=== PATIENT | female | born 1975 | race Caucasian/White ===

== ENCOUNTER → 2017-10-23 08:05 | Outpatient (CLI) | payer MEDICAID, SELFPAY ==
--- NOTE | 2017-10-23 08:10 | BI_ITS ---
MAMMOGRAPHY - BILATERAL SCREENING REASON FOR EXAM: Female, 42 years old. Routine annual screening examination. PERTINENT HISTORY: Non-contributory. TECHNIQUE: Digital bilateral breast etcor (3D mammographic acquisition) in the CC and MLO projections. 2-D mediolateral oblique (MLO) and craniocaudad (CC) views of both breasts were obtained. CAD: Full Field Digital Mammography with Computer Added Detection was performed. COMPARISON: None. Baseline examination. FINDINGS: Breast Composition: The breasts are heterogeneously dense, which may obscure small masses. There are no dominant masses or suspicious calcifications. Benign appearing bilateral axillary lymph nodes. No other significant abnormalities are identified. BI/SCREENING MAMM (CAD), BILAT IMPRESSION: Negative screening mammogram. Yearly followup mammogram recommended. (A) ASSESSMENT CATEGORY: BIRADS Category 2: Benign. A letter regarding these results will be sent to the patient by the facility within 30 days. Approximately 10% of breast cancers are not detected by mammography. A normal mammogram should not delay biopsy of a clinically suspicious abnormality. [id number] Electronically Signed: Sudhakar Zazueta MD at 15:14 EDT Tel [phone], Service support ,
== END ==
PROVIDERS: Visit Provider Obstetrics & Gynecology
DX: Z12.31 Encounter for screening mammogram for malignant neoplasm of breast (principal)
CPT/HCPCS: 77063; 77067

== ENCOUNTER → 2018-07-21 15:23 | Outpatient (CLI) | payer MEDICAID, SELFPAY ==
[2016-11-20 10:33] VITALS: BMI 41.2
== END ==
PROVIDERS: Referring Provider Otolaryngology; Visit Provider Otolaryngology
DX: J01.90 Acute sinusitis, unspecified (principal)
CPT/HCPCS: 87070; 87205

== ENCOUNTER → 2018-11-20 07:52 | Outpatient (CLI) | payer MEDICAID, SELFPAY ==
--- NOTE | 2018-11-20 07:54 | BI_ITS ---
MAMMOGRAPHY - BILATERAL SCREENING REASON FOR EXAM: Female, 43 years old. Routine annual screening examination. PERTINENT HISTORY: Non-contributory. TECHNIQUE: Digital bilateral breast alfie (3D mammographic acquisition) in the CC and MLO projections. 2-D mediolateral oblique (MLO) and craniocaudad (CC) views of both breasts were obtained. CAD: Full Field Digital Mammography with Computer Added Detection was performed. COMPARISON: Comparison is made with prior study dated October 23, 2017. FINDINGS: Breast Composition: The breasts are heterogeneously dense, which may obscure small masses. There are no dominant masses or suspicious calcifications. Stable appearance of the small bilateral axillary lymph nodes. No other significant abnormalities are identified. There has been no significant change since the prior study. BI/SCREEN MAMM (CAD) W/ALFIE BILAT IMPRESSION: Stable bilateral screening mammogram. Yearly follow-up mammogram recommended. (A) ASSESSMENT CATEGORY: BIRADS Category 2: Benign. A letter regarding these results will be sent to the patient by the facility within 30 days. Approximately 10% of breast cancers are not detected by mammography. A normal mammogram should not delay biopsy of a clinically suspicious abnormality. [id number] Electronically Signed: Sudhakar Zazueta, at 8:17 EDT , Service support ,
== END ==
PROVIDERS: Family Provider Preventive Medicine Occupational Medicine; PCP Preventive Medicine Occupational Medicine; Referring Provider Obstetrics & Gynecology; Visit Provider Obstetrics & Gynecology
DX: Z12.31 Encounter for screening mammogram for malignant neoplasm of breast (principal)
CPT/HCPCS: 77063; 77067

== ENCOUNTER 2018-12-07 08:30 | Outpatient (RCR) | payer MEDICAID, SELFPAY | END 2018-12-08 23:59 | LOC: NS 08:30 | PROVIDERS: Family Provider Preventive Medicine Occupational Medicine; PCP Preventive Medicine Occupational Medicine; Visit Provider Obstetrics & Gynecology | DX: E66.01 Morbid (severe) obesity due to excess calories (principal); Z68.41 Body mass index [BMI] 40.0-44.9, adult; Z71.3 Dietary counseling and surveillance | CPT/HCPCS: 97802; 97803 ==

== ENCOUNTER 2018-12-21 08:28 | Outpatient (RCR) | payer MEDICAID, SELFPAY ==
[2016-11-20 10:33] VITALS: BMI 41.2
== END 2019-01-08 23:59 ==
LOC: NS 08:28
PROVIDERS: Family Provider Preventive Medicine Occupational Medicine; PCP Preventive Medicine Occupational Medicine; Visit Provider Obstetrics & Gynecology
DX: E66.01 Morbid (severe) obesity due to excess calories (principal); Z68.41 Body mass index [BMI] 40.0-44.9, adult; Z71.3 Dietary counseling and surveillance
CPT/HCPCS: 97803

== ENCOUNTER 2019-02-07 09:00 | Outpatient (RCR) | payer MEDICAID, SELFPAY ==
[2016-11-20 10:33] VITALS: BMI 41.2
== END 2019-02-07 23:59 ==
LOC: NS 09:00
PROVIDERS: Family Provider Preventive Medicine Occupational Medicine; PCP Preventive Medicine Occupational Medicine; Visit Provider Obstetrics & Gynecology
DX: E66.01 Morbid (severe) obesity due to excess calories (principal); Z68.41 Body mass index [BMI] 40.0-44.9, adult; Z71.3 Dietary counseling and surveillance
CPT/HCPCS: 97803

== ENCOUNTER 2019-02-21 08:55 | Outpatient (RCR) | payer MEDICAID, SELFPAY ==
[2016-11-20 10:33] VITALS: BMI 41.2
== END 2019-03-10 23:59 ==
LOC: NS 08:55
PROVIDERS: Family Provider Preventive Medicine Occupational Medicine; PCP Preventive Medicine Occupational Medicine; Visit Provider Obstetrics & Gynecology
DX: E66.01 Morbid (severe) obesity due to excess calories (principal); Z68.41 Body mass index [BMI] 40.0-44.9, adult; Z71.3 Dietary counseling and surveillance
CPT/HCPCS: 97803

== ENCOUNTER → 2019-02-26 08:58 | Outpatient (CLI) | payer MEDICAID, SELFPAY ==
[2016-11-20 10:33] VITALS: BMI 41.2
[2019-02-26 10:56] LABS: Hematocrit 41.4 % (37-47); Hemoglobin 13.5 g/dL (12.0-15.0); Mean Corp Hgb Conc 32.6 g/dL (32-36); Mean Platelet Vol. 12.1 fl (6.2-12.0); Platelet Count 235 K/mm3 (150-450); RBC Distribution Width CV 12.8 % (11.6-14.6); RBC Distribution Width SD 44.6 fl (35.1-43.9); Red Blood Count 4.36 M/mm3 (4.2-5.4)
[2019-02-26 11:29] LABS: Cholesterol 165 mg/dL (200); Glucose 92 mg/dL (74-106); High Density Lipoprotein 45 mg/dL; Triglycerides 67 mg/dL; Very Low Density Lipoprotein 13 mg/dL (5-40)
[2019-02-28 09:51] LABS: Insulin 8.1 mU/L (2.6-37.6)
== END ==
PROVIDERS: Family Provider Preventive Medicine Occupational Medicine; PCP Preventive Medicine Occupational Medicine; Referring Provider Obstetrics & Gynecology; Visit Provider Obstetrics & Gynecology
DX: E66.1 Drug-induced obesity (principal); R63.5 Abnormal weight gain
CPT/HCPCS: 36415; 80061; 82947; 83525; 85027

== ENCOUNTER 2019-04-04 09:30 | Outpatient (RCR) | payer MEDICAID, SELFPAY ==
[2016-11-20 10:33] VITALS: BMI 41.2
== END 2019-04-04 23:59 | disposition home or self-care (01) ==
LOC: NS 09:30
PROVIDERS: Family Provider Preventive Medicine Occupational Medicine; PCP Preventive Medicine Occupational Medicine; Visit Provider Obstetrics & Gynecology
DX: Z71.3 Dietary counseling and surveillance (principal); E66.01 Morbid (severe) obesity due to excess calories; Z68.41 Body mass index [BMI] 40.0-44.9, adult
CPT/HCPCS: 97803

== ENCOUNTER → 2020-03-30 12:22 | Outpatient (CLI) | payer BC, MEDICAID, SELFPAY ==
[2020-03-30 10:05] VITALS: BMI 42.5
== END ==
PROVIDERS: PCP Preventive Medicine Occupational Medicine; Referring Provider Physician Assistant; Visit Provider Physician Assistant
DX: R53.83 Other fatigue (principal); R51.9 Headache, unspecified; R11.0 Nausea; M79.10 Myalgia, unspecified site
CPT/HCPCS: 87635; U0003

== ENCOUNTER → 2020-05-23 15:55 | Outpatient (CLI) | payer OTHER, MEDICAID, SELFPAY ==
[2020-03-30 10:05] VITALS: BMI 42.5
--- NOTE | 2020-05-23 15:58 | BI_ITS ---
MAMMOGRAPHY - BILATERAL SCREENING REASON FOR EXAM: Female, 44 years old. Routine annual screening examination. PERTINENT HISTORY: Non-contributory. TECHNIQUE: Digital bilateral breast alfie (3D mammographic acquisition) in the CC and MLO projections. 2-D mediolateral oblique (MLO) and craniocaudad (CC) views of both breasts were obtained. CAD: Full Field Digital Mammography with Computer Added Detection was performed. COMPARISON: Comparison is made with prior examination dated 11/20/2018 and 10/23/2017. FINDINGS: Breast Composition: The breasts are heterogeneously dense, which may obscure small masses. There are no dominant masses or suspicious calcifications. Stable small benign-appearing bilateral axillary lymph nodes. No other significant abnormalities are identified. There has been no significant change since the prior study. BI/SCRN MAMM (CAD)W/ALFIE BILAT IMPRESSION: Stable bilateral screening mammogram. Yearly follow-up mammogram recommended. (A) ASSESSMENT CATEGORY: BIRADS Category 2: Benign. A letter regarding these results will be sent to the patient by the facility within 30 days. Approximately 10% of breast cancers are not detected by mammography. A normal mammogram should not delay biopsy of a clinically suspicious abnormality. [id number] Electronically Signed: Sudhakar Zazueta, at 8:47 EST , Service support ,
== END ==
PROVIDERS: PCP Preventive Medicine Occupational Medicine; Referring Provider Preventive Medicine Occupational Medicine; Visit Provider Preventive Medicine Occupational Medicine
DX: Z12.31 Encounter for screening mammogram for malignant neoplasm of breast (principal)
CPT/HCPCS: 77063; 77067

== ENCOUNTER → 2020-10-23 17:42 | Outpatient (CLI) | payer OTHER, MEDICAID, SELFPAY ==
[2020-03-30 10:05] VITALS: BMI 42.5
--- NOTE | 2020-10-23 17:46 | MRI_ITS ---
STUDY: MRI RIGHT ANKLE WITHOUT CONTRAST REASON FOR EXAM: Right lateral ankle pain status post right ankle injury 2 weeks ago, evaluate for ligament tear, peroneal tendon tear. TECHNIQUE: Standardized fat and water weighted pulse sequences were obtained in all 3 orthogonal planes. COMPARISON: None. FINDINGS: There is mild edema in the lateral and medial subcutis adipose space. Normal posterior tibialis tendon. Normal flexor digitorum longus tendon. Normal flexor hallucis longus tendon. Normal peroneus longus and brevis tendons. Normal tibialis anterior tendon. Normal extensor hallucis longus tendon. Normal extensor digitorum longus tendons. Normal Achilles tendon. There is a posterior calcaneal enthesophyte. Normal plantar fascia. There is a plantar calcaneal enthesophyte. Normal intrinsic muscles of the rearfoot. Normal distal tibiofibular syndesmotic ligamentous complex. There is a sprain of the anterior talofibular ligament (inversion recovery series 10 image 14) without ligament rupture. Normal calcaneofibular and posterior talofibular ligaments. Normal subtalar ligaments and sinus tarsi. Normal deltoid ligamentous complexes. Normal plantar calcaneonavicular (spring) ligament. There is a small tibiotalar joint effusion (inversion recovery sagittal images 15, 16). Normal talar dome. Normal subtalar articulations. Normal talonavicular articulation. Normal calcaneocuboid articulation. Normal navicular-cuneiform articulations. MRI/Lower Ext Joint Only (Routine) IMPRESSION: Anterior talofibular ligament sprain. Small tibiotalar joint effusion. No demonstrated peroneal tendon tear. Electronically Signed: Santi Smith MD at 9:45 EDT Tel , Service support ,
== END ==
PROVIDERS: PCP Preventive Medicine Occupational Medicine; Visit Provider Podiatrist
DX: M25.373 Other instability, unspecified ankle (principal); S96.819A Strain of other specified muscles and tendons at ankle and foot level, unspecified foot, initial encounter; S93.409A Sprain of unspecified ligament of unspecified ankle, initial encounter
CPT/HCPCS: 73721

== ENCOUNTER → 2020-10-28 | Outpatient (CLI) | payer OTHER, MEDICAID, SELFPAY ==
[2020-10-28 15:15] LABS: Mucous, Urine 0 SEEN /hpf (<or=2+); Red Blood Cells-Urine 0 SEEN /hpf (0-5)
[2020-10-28 15:18] LABS: Color, Urine Yellow (Yellow); Glucose, Dipstick Normal (Normal); Ketone-Dipstick Negative (Negative); Leukocyte Esterase-Dipstick 25 /ul (Negative); Nitrite-Dipstick Negative (Negative); Occult Blood-Urine Negative /ul (Negative); Protein-Dipstick Negative (Negative); Urine Bilirubin Dipstick Negative (Negative); Urine Clarity Clear (Clear); Urine Urobilinogen Normal (Normal)
[2020-10-28 15:28] LABS: Bacteria RARE /hpf (None Seen); Squamous Epithelial Cells - UA 0-5 SEEN /hpf (5-10); White Blood Cells 0-5 SEEN /hpf (0-5)
== END | disposition home or self-care (01) ==
PROVIDERS: PCP Preventive Medicine Occupational Medicine; Visit Provider Physician Assistant
DX: R35.0 Frequency of micturition (principal); R30.0 Dysuria
CPT/HCPCS: 81001; 87086; 87088

== ENCOUNTER 2020-11-21 16:00 | Outpatient (RCR) | payer OTHER, MEDICAID, SELFPAY ==
--- NOTE | 2020-11-21 16:51 | HP.PTEVAL ---
Patient's Visit Information SEVEN SAENZ is a 45 year old F referred to Physical Therapy by Dr. Raleigh Gutierres DPM with a diagnosis of R lateral ankle sprain/instability. Date of Evaluation: 11/21/20 Physical Therapist: BOBBY Murguia - Visit Plan Frequency: 2x /Week Duration: 4 Weeks Plan: 2X/ week for 4 weeks for R ankle stretching, strengthening, balance and proprioception with HEP and US/TENS per script if needed - Subjective Pt sprained her R ankle the first part of October.... she missed the step in her garage. She has sprained that ankle several time including past Jan. This time she went to the Dr. and did not go before. He did an MRI and showed an sprain and pulled muscle. She was in a CAM boot so she has been just using the brace.... she uses it at work all the time or when she is on her feet. She is at [employer] and on her feet for 9 hours a day. Her R ankle is swollen by the end of the day. Sometimes propping the ankle helps the swelling and other times she ices. She is not on any meds at this point. She does not have a latex allergy. She reports that she is ok with walking on smooth surfaces she is fine but walking on stairs, rocks, or uneven ground that she is unstable. Squating and twisting her ankle swelled right away and she had to stop. She feels that is better from the day that happened but her ankle is not right. It is hard to get moving after sitting in one position for awhile and it has been this way a few years ago. - Pain R ankle pain Pain Intensity (Out of 10): 0 Pain Intensity Range: 3 - Objective Gait: walks with decrease stance time on the R. R Lat to med mal 26.4, Figure 8 52, 22.2. L 27.3, 52 22.3. R ankle AROM: DF 0 degrees, PF 53, INV 26, EV 17. L ankle AROM: DF 5, PF 70, INV 39, EV 12. R ankle MMT: DF 4-/5, NH 4-/5 with increase pain, EV 4-/5 and INV 4-/5. R SLB 9 seconds. L SLB 15 seconds. Tight R gastroc - Goals Goal 1:: I HEP Goal Time Frame: 4-6 Weeks Goal 2:: Increase R ankle strength by 1/2 muscle grade (at time of the eval: R ankle MMT: DF 4-/5, PF 4-/5 with increase pain, EV 4-/5 and INV 4-/5 Goal Time Frame: 4-6 Weeks Goal 3:: Be able to SLB X 30 seconds with no LOB and increase stability Goal Time Frame: 4-6 Weeks Goal 4:: Be able to walk without an antalgic gait pattern Goal Time Frame: 4-6 Weeks Goal 5:: Be able to complete a work day without having pain and swelling in her R ankle Goal Time Frame: 4-6 Weeks - Rehabilitation Potential Rehabilitation Potential: Good - Anticipated Interventions Patient/Client Instruction: Educate patient on: Condition, Plan of Care For the Purpose of:: To decrease swelling/inflammation, To increase ROM, To improve nutrient delivery to tissue, To improve muscle performance and motor function, To improve ability to perform ADL's, To increase tolerance to activity/condition/position, To improve performance and independence with ADL's, To improve ability of physical actions for home/community/work/leisure, To improve gait and locomotor functions, To improve health of tissue, To decrease soft tissue restriction, To increase flexibility/ROM, To improve balance, To improve safety with gait Therapeutic Exercise to Include: Strength training, Endurance training, Balance training, Flexibilty training, Gait and locomotor training, Neuromotor development, Passive ROM, Active ROM For the Purpose of:: To decrease swelling/inflammation, To increase ROM, To improve nutrient delivery to tissue, To improve muscle performance and motor function, To improve ability to perform ADL's, To increase tolerance to activity/condition/position, To improve performance and independence with ADL's, To decrease level of supervision to perform tasks, To improve ability of physical actions for home/community/work/leisure, To improve gait and locomotor functions, To improve health of tissue, To decrease soft tissue restriction, To increase flexibility/ROM, To improve balance, To improve safety with gait Manual Therapy Techniques to Include: Mobilization, Passive ROM, Soft tissue mobilization For the Purpose of:: To increase ROM, To improve nutrient delivery to tissue TENS: Yes Ultrasound (thermal/non thermal): Yes For the Purpose of:: To decrease swelling/inflammation, To improve nutrient delivery to tissue Thank you for the opportunity to evaluate your patient. For Medicare and Medicare HMO plans, please review the plan of care and approve it. It will need to be FAXED BACK to us at [phone] for Medicare purposes. For Medicare only, by signing this I certify the plan of care. Please let me know if there are questions or concerns regarding this plan of care. Physician Signature: Date:
--- NOTE | 2021-04-09 13:10 | HP.PTEVAL ---
Patient's Visit Information SEVEN SAENZ is a 45 year old F referred to Physical Therapy by Dr. Raleigh Gutierres DPM with a diagnosis of R lateral ankle sprain/instability. Date of Evaluation: 11/21/20 Physical Therapist: BOBBY Murguia - Visit Plan Frequency: 2x /Week Duration: 4 Weeks Plan: 2X/ week for 4 weeks for R ankle stretching, strengthening, balance and proprioception with HEP and US/TENS per script if needed - Subjective Pt sprained her R ankle the first part of October.... she missed the step in her garage. She has sprained that ankle several time including past Jan. This time she went to the Dr. and did not go before. He did an MRI and showed an sprain and pulled muscle. She was in a CAM boot so she has been just using the brace.... she uses it at work all the time or when she is on her feet. She is at [employer] and on her feet for 9 hours a day. Her R ankle is swollen by the end of the day. Sometimes propping the ankle helps the swelling and other times she ices. She is not on any meds at this point. She does not have a latex allergy. She reports that she is ok with walking on smooth surfaces she is fine but walking on stairs, rocks, or uneven ground that she is unstable. Squating and twisting her ankle swelled right away and she had to stop. She feels that is better from the day that happened but her ankle is not right. It is hard to get moving after sitting in one position for awhile and it has been this way a few years ago. - Pain R ankle pain Pain Intensity (Out of 10): 0 Pain Intensity Range: 3 - Objective Gait: walks with decrease stance time on the R. R Lat to med mal 26.4, Figure 8 52, 22.2. L 27.3, 52 22.3. R ankle AROM: DF 0 degrees, PF 53, INV 26, EV 17. L ankle AROM: DF 5, PF 70, INV 39, EV 12. R ankle MMT: DF 4-/5, ME 4-/5 with increase pain, EV 4-/5 and INV 4-/5. R SLB 9 seconds. L SLB 15 seconds. Tight R gastroc - Balance/Special Test Scores Lower Extremity Functional Score: 58 - Goals Goal 1:: I HEP Goal Time Frame: 4-6 Weeks Goal 2:: Increase R ankle strength by 1/2 muscle grade (at time of the eval: R ankle MMT: DF 4-/5, PF 4-/5 with increase pain, EV 4-/5 and INV 4-/5 Goal Time Frame: 4-6 Weeks Goal 3:: Be able to SLB X 30 seconds with no LOB and increase stability Goal Time Frame: 4-6 Weeks Goal 4:: Be able to walk without an antalgic gait pattern Goal Time Frame: 4-6 Weeks Goal 5:: Be able to complete a work day without having pain and swelling in her R ankle Goal Time Frame: 4-6 Weeks - Rehabilitation Potential Rehabilitation Potential: Good - Anticipated Interventions Patient/Client Instruction: Educate patient on: Condition, Plan of Care For the Purpose of:: To decrease swelling/inflammation, To increase ROM, To improve nutrient delivery to tissue, To improve muscle performance and motor function, To improve ability to perform ADL's, To increase tolerance to activity/condition/position, To improve performance and independence with ADL's, To improve ability of physical actions for home/community/work/leisure, To improve gait and locomotor functions, To improve health of tissue, To decrease soft tissue restriction, To increase flexibility/ROM, To improve balance, To improve safety with gait Therapeutic Exercise to Include: Strength training, Endurance training, Balance training, Flexibilty training, Gait and locomotor training, Neuromotor development, Passive ROM, Active ROM For the Purpose of:: To decrease swelling/inflammation, To increase ROM, To improve nutrient delivery to tissue, To improve muscle performance and motor function, To improve ability to perform ADL's, To increase tolerance to activity/condition/position, To improve performance and independence with ADL's, To decrease level of supervision to perform tasks, To improve ability of physical actions for home/community/work/leisure, To improve gait and locomotor functions, To improve health of tissue, To decrease soft tissue restriction, To increase flexibility/ROM, To improve balance, To improve safety with gait Manual Therapy Techniques to Include: Mobilization, Passive ROM, Soft tissue mobilization For the Purpose of:: To increase ROM, To improve nutrient delivery to tissue TENS: Yes Ultrasound (thermal/non thermal): Yes For the Purpose of:: To decrease swelling/inflammation, To improve nutrient delivery to tissue Thank you for the opportunity to evaluate your patient. For Medicare and Medicare HMO plans, please review the plan of care and approve it. It will need to be FAXED BACK to us at [phone] for Medicare purposes. For Medicare only, by signing this I certify the plan of care. Please let me know if there are questions or concerns regarding this plan of care. Physician Signature: Date:
== END 2020-11-21 19:00 | disposition home or self-care (01) ==
LOC: PT 16:00
PROVIDERS: PCP Preventive Medicine Occupational Medicine; Referring Provider Podiatrist; Visit Provider Podiatrist
DX: S93.491D Sprain of other ligament of right ankle, subsequent encounter (principal); X58.XXXD Exposure to other specified factors, subsequent encounter
CPT/HCPCS: 97161

== ENCOUNTER 2022-03-27 12:30 | Outpatient (RCR) | payer BC, MEDICAID, SELFPAY ==
--- NOTE | 2022-02-26 11:53 | HP.PTEVAL ---
Patient's Visit Information SEVEN SAENZ is a 46 year old F referred to Physical Therapy by Dr. Marcos Groves DPM with a diagnosis of Achilled Tendonitis. Date of Evaluation: 02/26/22 Physical Therapist: Nayeli Gutierrez DPT - Visit Plan Frequency: 2x /Week Duration: 4 Weeks Plan: Modality of US- manual and eccentrics- stretching. HEP Given IE: gastroc and soleus stretching with towel - Subjective Patient reports that her left foot is bothering her about a year ago- she reports that she has heel spurs- and its hard to go up on her toes. It always hurts right on the back of the heel but sometimes it moves to the medial and lateral heel. It will get so red and inflammed in the back- she has tried ice, voltaren- the only thing that helped was massage in the calf. That helped for a couple of days and returned to normal. Started last year when she had a boot on her right leg. Goes down stairs she goes sideways but can do recip down but just has to go slow. Hard to get up and move after sitting. She is wearing a night splint but she can only wear it for about 20 min then it starts to throb and radiated all the way up the back of her leg. She is taking Meloxicam that has helped some but the pain is still there. Worst: 5-6/10 Agg: stairs, getting up after sitting, walking- many times its after she does the activitites. She does not try to run or jump due to pain. Eases: massage Best: 0/10. Describes the pain as both sharp/shooting but its also dull achy and throbbing- burning. No N/T in the toes. No back or hip pains. No issues- prior to this- sprained her right ankle. She does not wear orthotics or inserts in her shoes. She feels that she needs a soft back to her shoe. She trys to be active- no specific exercise routine. Work: [employer]- stands/walks for most of her day. Sleep: not disturbed but when she first lays down the ankle pulsates. Did have an x-ray but no MRI. Had cortizone injections in May- one helped the other didn't. She does have tearing sensations. PMHx:none Meds: meloxicam- Deloxitine, Allergy medication. - Objective Posture: FH, RS- can correct with verbal cues but does not maintain- overweight. Gait: slightly antalgic- decreased stance on left LE with poor heel/toe pattern. Girth: Figure 8: 55 cm Malls:28.5 cm Mets: 22 cm. SLS: 5 sec with increased muscle activation, sway and pain. HR/TR: able with pain. ROM: all WFL with the limitation in DF: 10 degrees. Strength: 5/5 throughout. Flex: HS: severe, Gastroc: severe, Soleus: severe - Goals Goal 1:: Patient will be I with HEP and progression Goal Time Frame: 4-6 Weeks Goal 2:: Patient will ambulate >300 feet with a normalized gait pattern Goal Time Frame: 4-6 Weeks Goal 3:: Patient will asc/desc 8 stairs recip with no HR Goal Time Frame: 4-6 Weeks Goal 4:: Patient will report 80% improvement Goal Time Frame: 4-6 Weeks Goal 5:: Patient will SLS for 30 sec without LOB or pain Goal Time Frame: 4-6 Weeks - Rehabilitation Potential Physical Therapy Diagnosis: Patient presents with hypomobility- she has decreased painfree ROM, LE strength, flex and muscular endurance leading to abnormal gait and increased pain with ADL's. Rehabilitation Potential: Fair - Anticipated Interventions Patient/Client Instruction: Educate patient on: Benefits of Fitness Program Therapeutic Exercise to Include: Strength training, Endurance training, Balance training, Coordination, Agility training, Body mechanics, Postural training, Flexibilty training, Gait and locomotor training, Neuromotor development, Passive ROM, Active ROM, Dynamic Lumbar Stabilization, Scapular Strength/Stabilization For the Purpose of:: To improve ability to perform ADL's Manual Therapy Techniques to Include: Functional dry needling, Soft tissue mobilization TENS: Yes Cryotherapy (ice pack, ice massage): Yes Thermo therapy (hot pack): Yes Ultrasound (thermal/non thermal): Yes Thank you for the opportunity to evaluate your patient. For Medicare and Medicare HMO plans, please review the plan of care and approve it. It will need to be FAXED BACK to us at [phone] for Medicare purposes. For Medicare only, by signing this I certify the plan of care. Please let me know if there are questions or concerns regarding this plan of care. Physician Signature: Date:
--- NOTE | 2022-03-27 12:42 | HP.PT.NRP ---
SEVEN SAENZ was seen in my office for initial evaluation on 02/26/22. The following Plan of Care was established for this patient: Initial Frequency: 2x /Week Initial Duration: 4 Weeks Patient/Client Instruction: Educate patient on: Benefits of Fitness Program Therapeutic Exercise to Include: Strength training, Endurance training, Balance training, Coordination, Agility training, Body mechanics, Postural training, Flexibilty training, Gait and locomotor training, Neuromotor development, Passive ROM, Active ROM, Dynamic Lumbar Stabilization, Scapular Strength/Stabilization For the Purpose of:: To improve ability to perform ADL's Manual Therapy Techniques to Include: Functional dry needling, Soft tissue mobilization TENS: Yes Cryotherapy (ice pack, ice massage): Yes Thermo therapy (hot pack): Yes Ultrasound (thermal/non thermal): Yes This patient was last seen in our office . Pertinent comments regarding their Physical therapy will appear below: At this point I will be discontinuing this patient from physical therapy. I would be happy to see this patient again in the future if found appropriate by the physician. Thank you! Nayeli Gutierrez DPT Balance/Gait/Functional tests - Balance/Special Test Scores Lower Extremity Functional Score: 68
== END 2022-03-27 12:52 | disposition home or self-care (01) ==
LOC: PT 12:30
PROVIDERS: PCP Preventive Medicine Occupational Medicine; Referring Provider Podiatrist; Visit Provider Podiatrist
DX: M76.62 Achilles tendinitis, left leg (principal)
CPT/HCPCS: 97035; 97110; 97140; 97162; 97164

== ENCOUNTER → 2023-01-07 | Outpatient (CLI) | payer BC, SELFPAY ==
--- NOTE | 2023-01-07 06:44 | MRI_ITS ---
STUDY: MRI LEFT ANKLE WITHOUT CONTRAST REASON FOR EXAM: Female, 47 years old. ACHILLES TENDINITIS, LT ANKLE POSTERIOR PAIN TECHNIQUE: Standardized fat and water weighted pulse sequences were obtained in all 3 orthogonal planes. COMPARISON: None. FINDINGS: The Achilles tendon is moderately thickened in the middle one third region down to its insertion site on the calcaneus, with mild intrasubstance degeneration and signal but no tears or retraction. The remaining aspects of the Achilles tendon are normal. A small amount of pre-Achilles bursal fluid is present. The central cord of the plantar fascia at the calcaneal insertion site is also mildly thickened with increased signal. Normal remaining aspects of the plantar fascia. No marrow edema or fracture or osteochondral defect is present. Normal subcutis adipose space. Normal posterior tibialis tendon. Normal flexor digitorum longus tendon. Normal flexor hallucis longus tendon. Normal peroneus longus and brevis tendons. Normal tibialis anterior tendon. Normal extensor hallucis longus tendon. Normal extensor digitorum longus tendons. Normal plantar calcaneal tubercles. Normal intrinsic muscles of the rearfoot. Normal distal tibiofibular syndesmotic ligamentous complex. Normal lateral ligamentous complex. Normal subtalar ligaments and sinus tarsi. Normal deltoid ligamentous complexes. Normal plantar calcaneonavicular (spring) ligament. Normal tibiotalar articulation. Normal talar dome. Normal subtalar articulations. Normal talonavicular articulation. Normal calcaneocuboid articulation. Normal navicular-cuneiform articulations. MRI/Lower Ext Joint Only (Routine) IMPRESSION: 1. Moderate Achilles tendinosis and pre-Achilles bursitis 2. Mild plantar fasciitis Electronically Signed: Jonny Cohen MD at 10:07 EDT Reading Location ID and State: [address] [place] [address] , Service support ,
== END | disposition home or self-care (01) ==
LOC: MRI 06:42
PROVIDERS: PCP Preventive Medicine Occupational Medicine; Referring Provider Podiatrist; Visit Provider Podiatrist
DX: M76.62 Achilles tendinitis, left leg (principal)
CPT/HCPCS: 73721

== ENCOUNTER 2023-04-17 05:52 | Day surgery (SDC) | payer BC, SELFPAY ==
[2023-04-11 09:13] LABS: Absolute Lymphocyte Count 1.67 X10^3/uL (0.83-4.51); Absolute Neutrophil Count 6.1 X10^3/uL (2.0-7.7); Basophil# 0.05 X10^3/uL; Basophil% 0.6 % (0-1); Eosinophil# 0.09 X10^3/uL; Eosinophils% 1.1 % (0-5); Lymphocyte # 1.67 X10^3/ul (0.83-4.51); Lymphocyte % 20.4 % (19-41); Mean Corp Hgb Conc 31.8 g/dL (32-36); Mean Corpuscular Hgb 30.2 pg (27.0-32.0); Mean Corpuscular Volume 94.8 fL (81-99); Mean Platelet Vol. 11.6 fl (6.2-12.0); Monocyte# 0.25 X10^3/uL; Monocyte% 3.1 % (0-10); NRBC Flagged by Analyzer 0 % (0-5); Neutrophil # 6.07 X10^3/uL (2.7-7.7); Neutrophil % 74.3 % (47-70); Platelet Count 323 K/mm3 (150-450); RBC Distribution Width CV 13.4 % (11.6-14.6); RBC Distribution Width SD 46.8 fl (35.1-43.9); Red Blood Count 4.64 M/mm3 (4.2-5.4); White Blood Count 8.2 K/mm3 (4.4-11.0)
[2023-04-11 09:48] LABS: AST(SGOT) 16 U/L (15-37); Alanine Aminotransfer ALT/SGPT 24 U/L (13-56); Albumin, Serum 3.6 g/dL (3.2-5.0); Alkaline Phosphatase 89 U/L (45-117); Anion Gap 5 (5-15); BUN 12 mg/dL (7-18); BUN/Creat Ratio 12.9 RATIO (10-20); Calcium,Total 8.8 mg/dL (8.5-10.1); Chloride 111 mmol/L (98-107); Creatinine, Serum 0.93 mg/dL (0.55-1.02); EST Glomerular Filtration Rate 69 mL/min (>60); Est Glom Filt Rate - Afr Amer 83 mL/min (>60); Globulin 3.7 g/dL (2.2-4.2); Glucose 102 mg/dL (74-106); Protein, Total 7.3 g/dL (6.4-8.2); Sodium Level 142 mmol/L (136-145)
[2023-04-17] VITALS (10 sets, daily range): BP systolic 142–157; BP diastolic 69–82; PULSE 90–103; RESP 16–97; TEMP 36.2–36.4; O2SAT 16–100; BMI 43.4
[2023-04-17] MEDS: Lactated Ringers 1,000 ML 15 ML IV (06:27)
[2023-04-17] MEDS: Cefazolin 3 GM in 0.9% Normal Saline (100mL Bag) 100 ML IV (07:30)
--- NOTE | 2023-04-17 07:30 | TESH_PTH ---
PATIENT: SEVEN SAENZ LOC: [facility] – [place] U#:[id number] AGE/SX: 47/F ROOM: RE04/17/[address]: Dr. Marcos Groves DPM : 1975 BED: DIS: 04/17/2023 SPEC #: [id number] RECD: 04/20/23 07:29 STATUS: KHUSHBOO REElsa #: [id number] VINCENT: 04/17/23 07:[address]: Marcos Groves DEPT: SURGICAL PATHOLOGY RECD BY: Stephani Villegas ENTERED: 04/20/23 08:18 SP TYPE: TENDON OTHR DR: Dr. Dionisio Reyes, DO Tissues: A - Tendon and tendon sheath, NOS B - Bursa, NOS C - Bone of foot, NOS Procedures: Decalcification bone/plaque Surgery Specimen Level III HEADER OPERATION: Left foot insertional Achilles debridement, detachment, repair. PRE-OP DIAGNOSIS: Left foot tendinitis TISSUE SUBMITTED: A - Left Achilles tendinosis with calcification, B - Left retrocalcaneal bursa, C - Left calcaneal bone spur MICROSCOPIC DIAGNOSIS A. Left Achilles tendinosis with calcification, excision: Fragments of dense fibroconnective tissue with focal ossification and fibroadipose tissue. B. Left retrocalcaneal bursa, excisional biopsy: A piece of fibroadipose tissue, clinically bursa. C. Left calcaneal bone spur, excision: Pieces of bone with reactive changes. SJ:mary 04/23/2023 MICROSCOPIC DESCRIPTION Slides are reviewed. GROSS DESCRIPTION A - Received in fixative is one container labeled with the patient's name and designated left Achilles tendinosis with calcification. The specimen consists of multiple pieces of thompson, indurated tissue that in aggregate measure 6.0 x 3.0 x 1.0 cm. A focal bony area is noted. Fly Worker sections are submitted in one cassette after decalcification. B - Received in fixative is one container labeled with the patient's name and designated left retro-calcaneal bursa. The specimen consists of a piece of adipose tissue measuring 2.0 x 1.5 x 1.0 cm. Sections do not reveal any mass lesion. The entire specimen is submitted in one cassette. C - Received in fixative is one container labeled with the patient's name and designated left calcaneal bone spur. The specimen consists of multiple pieces of bone with soft tissue measuring in aggregate 4.5 x 3.5 x 0.5 cm. Fly Worker tissue is submitted in one cassette after decalcification. / KARISHMA:mary 04/20/2023 TC:5 CPT: 72693 x3, 55830 x2
--- NOTE | 2023-04-17 08:05 | RAD_ITS ---
STUDY: X-RAY - LEFT CALCANEUS REASON FOR EXAM: Female, 47 years old. Calcaneal debridement. TECHNIQUE: 5 intraoperative digital documentation view(s) of the calcaneus were obtained. COMPARISON: None. FINDINGS: 5 intraoperative digital documentation views were obtained. RAD/Calcaneus min 2 Views IMPRESSION: Digital documentation views of calcaneal debridement. Electronically Signed: Josiah Jaeger MD at 10:56 EST ,
[2023-04-17] MEDS: Bupivacaine Mpf 0.5% 30 ML VIAL (08:30)
--- NOTE | 2023-04-17 09:40 | OP.PCM_ITS ---
Problems Associated Problem List Diagnoses (1) Plantar fascial fibromatosis: (2) Achilles tendinitis, left leg: (3) Calcaneal spur, left: (4) Short Achilles tendon (acquired), left ankle: Report of Operation Date of Procedure: 04/17/23 Pre-Operative Diagnosis: 1) left insertional tendinosis 2) retrocalcaneal bursitis, left 3) insertional Achilles calcaneal spur left 4) plantar fasciitis left 5) equinus left lower extremity Post-Operative Diagnosis: Same Surgery/Procedure Performed:: 1) left gastrocnemius recession endoscopic 2) left plantar fasciotomy endoscopic 3) left insertional Achilles tendon debridement with detachment reattachment 4) excision of calcaneal spur left lower extremity 5) application of splint left lower extremity Description of Surgical Findings:: Patient had chronic issues with failed multiple conservative treatments including Stretching immobilization NSAIDs and rest. Patient equinus deformity as well as chronic plantar fasciitis and chronic i nsertional Achilles tendinosis as well as retrocalcaneal spurring and retrocalcaneal bursitis. After failed conservative treatment decision was agreed upon to proceed with elective gastrocnemius recession endoscopic plantar fasciotomy insertional Achilles tendon debridement with detachment reattachment excision of calcaneal spur. Upon completion of the procedure the gastrocnemius was noted to be resected and there is improvement in ankle joint dorsiflexion as well as plantar fascia was noted to be released as well with improved tension to that site. There is noted to be diffuse Achilles tendinosis with calcification within the tendon this was debrided and removed so that we had a nice smooth laminar tendon. Intraoperatively and fluoroscopically retrocalcaneal spurring was noted to be c ompletely resected. Surgeon: Marcos Groves physician relations representative: None (ventura oliver) Type of Anesthesia: General Special Medications: Intraoperatively 20 cc half percent Marcaine plain Specimen's removed: Achilles tendinosis with calcification, retrocalcaneal bone spur Drains: None Estimated Blood Loss (mL): Minimal Description of Procedure: Patient was brought back the operating room. Patient induced under general anesthesia on the cart and then flipped in the prone position. All airway protection was noted as well as all osseous prominences offloaded prevent any compression neuropraxia's or issues with prone surgery. Well-padded left lower extremity thigh tourniquet was applied. Left lower extremity scrubbed prepped draped using typical aseptic septic fashion. Left lower extremity was elevated exsanguinated tourniquet was inflated 300 mmHg. Total tourniquet time at the end of case was noted be 70 minutes. Procedure #1 gastrocnemius recession left lower extremity endoscopic: The gastrocnemius muscle was palpated and along the medial aspect of the muscle 1 cm distal to the musculotendinous junction at the gastrocnemius a stab incision was made with a 15 blade hemostats were taken to ask and bluntly dissect down to the level of the gastrocnemius aponeurosis this was palpated and a trocar and cannula were inserted from medial to lateral a lateral incision was made where the trocar was pointing from the skin with a stab incision using a #15 blade. The site was cleansed with the trocar was removed and the site was cleansed with multiple Q-tips scope was then inserted from lateral to medial in the gastrocnemius aponeurosis was then identified. Care was taken to avoid injury to the sural nerve and any adjacent neurovascular structures with the incision using blunt dissection and atraumatic technique. The gastrocnemius was then released using a hook blade endoscopically from lateral to medial this was confirmed with visualization of the underlying soleus muscle belly and improvement in ankle joint dorsiflexion from 5 degrees dorsiflexion to 10 degrees. Sites were flushed with copious amounts normal sterile saline and closed using mattress 3-0 nylon. Procedure #2 endoscopic left plantar fasciotomy: The medial calcaneal tubercle was palpated and approximately once a centimeter distal this where the plantar medial skin made a stab incision was made blunt dissection taken down the level of plantar fascia and a trocar and cannula were inserted from medial to lateral traversing just inferior to the plantar fascial band and lateral incision was made to allow for complete passage of the trocar and cannula using a 15 blade this was cleansed with Q-tips. Scope was inserted from lateral to medial plantar fascia was visualized the lateral the medial two thirds of the central band plantar fascia were then released this was confirmed by visualization of the underlying intrinsic muscle bellies using a hook blade. Site was all equipment was removed site was flushed with copious saline and closed with three 0-0 nylon horizontal mattress. Procedure #3/4 insertional Achilles tendon debridement with excision of retrocalcaneal bursa with detachment reattachment of the insertion of the Achilles tendon resection of calcaneal spurring: The Achilles tendon was palpated approximately 4 cm proximal to its insertion and a central midline incision would be made from proximal to distal starting from 4 cm proximal to its insertion down to the plantar aspect of the calcaneus this made full-thickness through epidermis dermis into subcutaneous tissue using a 15 blade any bleeders identified cauterized neurovascular structures were protected with blunt retraction. Blunt dissection was taken down the level of deep fascia and the Achilles tendon deep fascia were then identified and noted to be significantly thickened with calcification within the tendon a linear incision was made centrally within the Achilles tendon and the Achilles tendon was dissected off its insertion using a book and technique with a 15 blade and pickups to expose the posterior calcaneal exhaust gnosis and Chacho's deformity again significant tendinosis was noted so this was debrided and excised including any calcifications to the site until a nice healthy smooth tissue remained. This tendon would be passed back table to set be sent for pathology. Calcaneal spur was then removed using a sagittal saw this was confirmed with fluoroscopic imaging and Chacho's deformity was also excised as well confirmed with fluoroscopy scopic imaging and intraoperative evaluation. Calcaneal spurring and Chacho's deformity sent to pathology for further examination. Next the Achilles tendon was then read tubularized using 2-0 FiberWire. And then the Achilles tendon was then reattached using the Arthrex speed bridge technique with therefore anchors. This was performed using manufactures guidelines with the foot held in a rectus position. Once this was performed to urniquet was let down the incision was flushed with copious amounts normal sterile saline subcutaneous closure was performed with simple interrupted buried 2-0 Vicryl. Skin closure was performed with horizontal mattress using 3-0 nylon. Procedure #5 application of splint to left lower extremity: Incisional sites were dressed with Betadine Adaptic 4 x 4's Kerlix and a well- padded Godoy compression AO splint with the foot held in gravity plantarflexion was applied to left lower extremity. Patient was then transported to PACU vital signs stable vascular status intact all digits for further monitoring prior to discharge. Patient Toller procedure and anesthesia well apparent satisfactory condition. No complications. Grafts/Implants Used: Arthrex speed bridge Complications None Admit VTE Documentation VTE Present on Admission: Yes VTE Pharm Prophylaxis ordered?: Yes
== END 2023-04-17 12:31 | disposition home or self-care (01) ==
LOC: SDC 05:52 → AC 05:53
PROVIDERS: PCP Preventive Medicine Occupational Medicine; Referring Provider Podiatrist; Visit Provider Podiatrist
PROC: (CPT 27650; principal; 2023-04-17 07:15)
DX: M72.2 Plantar fascial fibromatosis (principal); M76.62 Achilles tendinitis, left leg; M77.32 Calcaneal spur, left foot; M67.02 Short Achilles tendon (acquired), left ankle; Z79.82 Long term (current) use of aspirin; Z79.899 Other long term (current) drug therapy
CPT/HCPCS: 27687; 29893; 28119; 27654; 29999; 01474; 36415; 73650; 76000; 80053; 85025; 88304; 88311; J7120; J2405

== ENCOUNTER 2023-08-13 12:00 | Outpatient (RCR) | payer BC, SELFPAY ==
--- NOTE | 2023-06-02 08:07 | HP.PTEVAL ---
Patient's Visit Information Visit Information Visit Information: SEVEN SAENZ is a 47 year old F referred to Physical Therapy by Dr. Marcos Groves DPM with a diagnosis of L achilles tendinitis, DOS: 04/17/23. Date of Evaluation: 06/01/23 Physical Therapist: Alf Anand DPT Visit Plan Frequency: 2x /Week Duration: 6 Weeks Plan: Start with ROM both AROM and PROM. Add in ankle strengthening as tolerated. Progress to full shoe over the next 2 weeks as tolerated. Subjective Subjective: Pt. is here today for her initial evaluation with diagnosis of L achilles Tendinitis. Pt. had surgery on 04/17/23. Pt. had a gastroc resection, plantar fasciotomy, achilles debridement with detachment/reattachment, and calcaneal spur removal. Pt. is now WBAT in walking boot. She just trialed with out crutches over the past few days. She is to be hopefully in a shoe in 2 weeks. 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 Pt. alternates sitting and standing throughout the day at work. Pt. reports not having to lifting much more over 10-15 lbs at a time. Plans to return back to work in July. She denies N/T. Pt. is hopeful to get back to all recreational and work activities without limitations. She currently has a heel lift, but is to remove 1 layer every week. Pain L achillies: Pain Intensity (Out of 10): 2 Pain Intensity Range: 1 and 6 L plantar surface of foot: Pain Intensity (Out of 10): 2 Pain Intensity Range: 1 and 6 Objective Objective: POSTURE: Pt. has decent posture in stance. pt. has increased wt. shift to R side. pt. has good tolerance to standing. PALPATION: pt. has well healing incisions. No signs of infection. No open areas. Pt. has tenderness along G/S complex and achilles tendon. NEURO: Normal throughout. normal patellar DTR noted. ROM: L ankle: AROM: DF 0deg, PF 48deg, INV 5 deg, Evr 2. PROM: DF 6 deg, PF 54deg, EVR 6deg, INV 12deg. No pain with all ROM testing. MMT: L ankle: DF 5-/5, PF 4/5, INV 4/5, EVR 4+/5. Knee: 5/5 throughout; hip: flexion 5/5, abd 4+/5. GAIT: ambulates with CAM boot with good tolerance. Slight antalgic pattern. Pt. has reduced step length with R foot. Pt. has normal hip stability in L stance phase. STAIRS: Step to pattern noted with descending. She is able to complete recripocal with ascending, but difficult with descending. Uses BHR to complete. Goals Goal 1:: LTG: Pt. to be I with HEP. Goal Time Frame: 4-6 Weeks Goal 2:: STG: Pt. to have increased L ankle DF to 20deg allowing for improved gait pattern. Goal Time Frame: 2-4 Weeks Goal 3:: LTG: Pt. to ambulate with boot with good tolerance with normal gait pattern. Goal Time Frame: 2-4 Weeks Goal 4:: LTG: Pt. to ambulate without boot without increase in L ankle pain with normal gait mechanics. Goal Time Frame: 4-6 Weeks Goal 5:: LTG: Pt. to have 5/5 strength throughout L ankle. Goal Time Frame: 4-6 Weeks Goal 6:: LTG: Pt. to resume all work activities without increase in symptoms. Goal Time Frame: 4-6 Weeks Rehabilitation Potential Physical Therapy Diagnosis: Pt. has signs and symptoms consistent with L achilles tendinitis with subsequent need for surgical intervention. Pt. is S/P Pt. had a gastroc resection, plantar fasciotomy, achilles debridement with detachment/reattachment, and calcaneal spur removal on 04/17/23. Pt. has some marked hypomobility, weakness, increased pain and difficulty with walking. She would benefit from PT to address all of the above limitations progressing back to all work and recreational activities. Rehabilitation Potential: Excellent Anticipated Interventions Patient/Client Instruction: Educate patient on: Condition, Plan of Care, Risk Factors and Benefits of Fitness Program For the Purpose of:: To improve health and function, To foster healthy habits, To improve decision making, To facilitate caregiver knowledge, To improve self management, To prevent re-injury and To improve ability to perform tasks related to life management Therapeutic Exercise to Include: Strength training, Power training, Endurance training, Coordination, Postural training, Flexibilty training, Gait and locomotor training, Passive ROM and Active ROM For the Purpose of:: To decrease pain, To increase ROM, To increase oxygenation perfusion, To improve muscle performance and motor function, To improve ability to perform ADL's, To increase tolerance to activity/condition/position and To improve performance and independence with ADL's Manual Therapy Techniques to Include: Mobilization, Passive ROM and Soft tissue mobilization For the Purpose of:: To decrease pain, To decrease swelling/inflammation, To increase ROM, To improve nutrient delivery to tissue, To increase oxygenation perfusion, To improve muscle performance and motor function and To improve ability to perform ADL's Text: Thank you for the opportunity to evaluate your patient. For Medicare and Medicare HMO plans, please review the plan of care and approve it. It will need to be FAXED BACK to us at [phone] for Medicare purposes. For Medicare only, by signing this I certify the plan of care. Please let me know if there are questions or concerns regarding this plan of care. Physician Signature: Date:
--- NOTE | 2023-06-25 13:26 | HP.PTREVAL_ITS ---
Re-Evaluation Intro: Dr. Marcos Groves, DPM, It has been my pleasure to treat SEVEN SAENZ over the last 9 visits for L achilles tendinitis, DOS: 04/17/23. Please see the progress note below for an update on the physical therapy plan of care! Subjective Subjective: Pt is out of her boot most of the time, wore after last PT session d/t soreness and helped to calm it down. Pt reports some burning near her scar but massage helps to relieve. Pt continues to have soreness with walking and WB and some pain with pushing off while walking in medial lateral potion of L ankle. Pt using cortisone cream to help reduce sensitivity in scar/ankle. Objective Objective/Function: ROM: L DF 13, PF 50, EV 20, INV 30 MMT: overall 4/5 ankle strength but greatest difficulty with resisted post tib (PF + inv) 3+/5 GAIT: slightly early toe off on LLE, mild instability with tendency to supinate in L ankle in stance phase, pain in medial ankle and plantar fascia with approx. 40 steps STAIRS: reciprocal to ascend, step to pattern to descend with LLE leading (pain when leading with RLE d/t bending of L knee and ankle) Pt demonstrates good L ankle ROM but has lingering soreness and pain following deficit/eccentric HR and prolonged stretching d/t some muscular irritation (most likely post tib). Plan Plan Plan: Pt currently flared up in post tib and achilles region. Address pain and soft tissue restrictions with gentle STM (calf, ant. tib, post tib, plantar fascia, scar mobilization) and AROM. Can begin GENTLE ankle strengthening and s tability ex using airex (not BOSU) and partial range heel raises. WB act best to prepare pt to RTW, but base off of tolerance. Goals Goals Goal 1:: LTG: Pt. to be I with HEP. Goal Time Frame: 4-6 Weeks Goal 2:: STG: Pt. to have increased L ankle DF to 20deg allowing for improved gait pattern. Goal Time Frame: 2-4 Weeks Goal 3:: LTG: Pt. to ambulate with boot with good tolerance with normal gait pattern. Goal Time Frame: 2-4 Weeks Goal 4:: LTG: Pt. to ambulate without boot without increase in L ankle pain with normal gait mechanics. Goal Time Frame: 4-6 Weeks Goal 5:: LTG: Pt. to have 5/5 strength throughout L ankle. Goal Time Frame: 4-6 Weeks Goal 6:: LTG: Pt. to resume all work activities without increase in symptoms. Goal Time Frame: 4-6 Weeks Anticipated Interventions Anticipated Interventions Patient/Client Instruction: Educate patient on: Condition, Plan of Care, Risk Factors and Benefits of Fitness Program For the Purpose of:: To improve health and function, To foster healthy habits, To improve decision making, To facilitate caregiver knowledge, To improve self management, To prevent re-injury and To improve ability to perform tasks related to life management Therapeutic Exercise to Include: Strength training, Power training, Endurance training, Coordination, Postural training, Flexibilty training, Gait and lo comotor training, Passive ROM and Active ROM For the Purpose of:: To decrease pain, To increase ROM, To increase oxygenation perfusion, To improve muscle performance and motor function, To improve ability to perform ADL's, To increase tolerance to activity/condition/position and To improve performance and independence with ADL's Manual Therapy Techniques to Include: Mobilization, Passive ROM and Soft tissue mobilization For the Purpose of:: To decrease pain, To decrease swelling/inflammation, To increase ROM, To improve nutrient delivery to tissue, To increase oxygenation perfusion, To improve muscle performance and motor function and To improve ability to perform ADL's Re-Evaluation Ending Re-evaluation ending: Please do not hesitate to contact me at [phone] by phone or if you have questions or concerns regarding this new plan of care! Sincerely, Alf Anand DPT
--- NOTE | 2023-07-15 11:51 | HP.PTREVAL_ITS ---
Re-Evaluation Intro: Dr. Marocs Groves, DPM, It has been my pleasure to treat SEVEN SAENZ over the last 15 visits for L achilles tendinitis, DOS: 04/17/23. Please see the progress note below for an update on the physical therapy plan of care! Subjective Subjective: Pt is set to go back to work next week, able to start with half days. Saw physician yesterday and he had no questions or concerns. Pt feels that manual STM has helped with tightness in LLE. Objective Objective/Function: ROM: DF AROM 5 deg, PROM 10 deg with muscular tightness for end feel, INV 30 deg, EV 15 deg, PF 45 deg with some pull in ant foot MMT: 4-/5 INV, 4/5 EV, 3+/5 in WB HR, 4/5 DF PALPATION: some puffiness near L medial malleolus, redness and irritation of scar with decreased mobility, muscular tightness/tenderness along peroneal tendons and insertion of post tib STAIRS: increased pull when descending stairs, leading to early heel off and only fair control of descent when landing on RLE, minimal use of unilateral HR for support GAIT: normalized pattern, some pull in medial L foot during terminal stance on LLE leading to some increased hyperext of L knee to avoid end range DF OTHER: attempted eccentric HR and pt reported pain and weakness, unable to complete x1 on LLE Overall pt doing much better, has improved ROM, strength, and pain. Still some muscular tightness and weakness that limits controlled descent on stairs and swelling when WB for prolonged periods. UPDATED HEP: standing HR, purple band for ankle strengthening, and partial step downs with UE support to provide active stretch Plan Plan Plan: Pt to return to work next week, beginning with half-days and increasing to full 8 hour shift. Pt to return late next week to touch base and re-assess tolerance to work act. Goals Goals Goal 1:: LTG: Pt. to be I with HEP. Goal Time Frame: 4-6 Weeks Goal 2:: STG: Pt. to have increased L ankle DF to 20deg allowing for improved gait pattern. Goal Time Frame: 2-4 Weeks Goal 3:: LTG: Pt. to ambulate with boot with good tolerance with normal gait pattern. Goal Time Frame: 2-4 Weeks Goal Progress: Goal Met Goal 4:: LTG: Pt. to ambulate without boot without increase in L ankle pain with normal gait mechanics. Goal Time Frame: 4-6 Weeks Goal Progress: Goal Met Goal 5:: LTG: Pt. to have 5/5 strength throughout L ankle. Goal Time Frame: 4-6 Weeks Goal Progress: Progressing Goal 6:: LTG: Pt. to resume all work activities without increase in symptoms. Goal Time Frame: 4-6 Weeks Goal Progress: Progressing Anticipated Interventions Anticipated Interventions Patient/Client Instruction: Educate patient on: Condition, Plan of Care, Risk Factors and Benefits of Fitness Program For the Purpose of:: To improve health and function, To foster healthy habits, To improve decision making, To facilitate caregiver knowledge, To improve self management, To prevent re-injury and To improve ability to perform tasks related to life management Therapeutic Exercise to Include: Strength training, Power training, Endurance training, Coordination, Postural training, Flexibilty training, Gait and locomotor training, Passive ROM and Active ROM For the Purpose of:: To decrease pain, To increase ROM, To increase oxygenation perfusion, To improve muscle performance and motor function, To improve ability to perform ADL's, To increase tolerance to activity/condition/position and To improve performance and independence with ADL's Manual Therapy Techniques to Include: Mobilization, Passive ROM and Soft tissue mobilization For the Purpose of:: To decrease pain, To decrease swelling/inflammation, To increase ROM, To improve nutrient delivery to tissue, To increase oxygenation pe rfusion, To improve muscle performance and motor function and To improve ability to perform ADL's Re-Evaluation Ending Re-evaluation ending: Please do not hesitate to contact me at [phone] by phone or if you have questions or concerns regarding this new plan of care! Sincerely, Alf Anand DPT
== END 2023-08-13 19:00 | disposition home or self-care (01) ==
LOC: PT 12:00
PROVIDERS: PCP Preventive Medicine Occupational Medicine; Referring Provider Podiatrist; Visit Provider Podiatrist
DX: M76.62 Achilles tendinitis, left leg (principal)
CPT/HCPCS: 97035; 97110; 97140; 97161; 97164; 97530